=== PATIENT | male | born 1990 | race African-American/Black ===

== ENCOUNTER 2020-09-15 19:49 | Emergency (ER) | payer SELFPAY ==
[~2020-09-15] VITALS: Ht 175.3 cm; Wt 61.0 kg
[2020-09-15 19:52] VITALS: BP 155/105
[2020-09-15] MEDS ORDERED: ACETAMINOPHEN 325MG TABLET PO ONE (20:45)
== END 2020-09-15 21:30 | disposition home or self-care (01) ==
LOC: ER 19:49
DX: S50.12XA Contusion of left forearm, initial encounter (principal); V49.59XA Passenger injured in collision with other motor vehicles in traffic accident, initial encounter; Y93.89 Activity, other specified; Y92.488 Other paved roadways as the place of occurrence of the external cause
CPT/HCPCS: 73090; 99283